=== PATIENT | female | born 1995 | race Caucasian/White ===

== ENCOUNTER 2019-04-10 15:58 | Emergency (ER) | payer BC ==
--- NOTE | 2019-04-10 17:19 | EDM.PDOC ---
ED HPI GENERAL MEDICAL PROBLEM - General Chief Complaint: Genitourinary Problem Stated Complaint: NAUSEA/POSS UTI Time Seen by Provider: 04/10/19 16:39 Source of Information: Reports: Patient History Limitations: Reports: No Limitations - History of Present Illness INITIAL COMMENTS - FREE TEXT/NARRATIVE: 24-year-old female presents for evaluation and treatment of urinary tract infection-like symptoms. Patient reports symptoms for the last few days. Current symptoms include dysuria, back pain, nausea and fatigue. Denies any hematuria, fevers, chills or vomiting. No vaginal discharge. Patient reports she is several days later for her menstrual cycle. Last menstrual cycle was over a month ago. She did take an at home urine test and this was negative. Patient has a history of PCOS. 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 Denies: Fever, Chills GI/Abdominal: Reports: Nausea. Denies: Abdominal Pain, Vomiting : Reports: Dysuria. Denies: Discharge, Flank Pain, Hematuria Musculoskeletal: Reports: Back Pain ED EXAM, RENAL/ - Physical Exam Exam: See Below Exam Limited By: No Limitations General Appearance: Alert, WD/WN, No Apparent Distress, Obese Respiratory/Chest: No Respiratory Distress, Lungs Clear, Normal Breath Sounds Cardiovascular: Normal Peripheral Pulses, Regular Rate, Rhythm, No Murmur GI/Abdominal: Normal Bowel Sounds, Soft, Non-Tender Back Exam: No: CVA Tenderness (L), CVA Tenderness (R) Neurological: Alert, Oriented, Normal Cognition Psychiatric: Normal Affect, Normal Mood Skin Exam: Warm, Dry, Normal Color Course - Vital Signs Last Recorded V/S: Last Vital Signs Temp 98.6 F 04/10/19 16:07 Pulse 60 04/10/19 16:07 Resp 15 04/10/19 16:07 BP 114/81 04/10/19 16:07 Pulse Ox 98 04/10/19 16:07 - Orders/Labs/Meds Labs: Laboratory Tests 04/10/19 04/10/19 04/10/19 Range/Units 16:55 17:05 17:05 Urine Color Yellow (Yellow) Urine Appearance Slt cloudy H (Clear) Urine pH 8.5 H (5.0-8.0) Ur Specific [place] 1.020 (1.005-1.030) Urine Protein 1+ H (Negative) Urine Glucose (UA) Negative (Negative) Urine Ketones Negative (Negative) Urine Occult Blood Trace-intact H (Negative) Urine Nitrite Negative (Negative) Urine Bilirubin Negative (Negative) Urine Urobilinogen 0.2 (0.2-1.0) Ur Leukocyte Esterase 1+ H (Negative) Urine RBC 5-10 H (0-5) /hpf Urine WBC 40-50 H (0-5) /hpf Ur Squamous Epith Cells 0-5 (0-5) /hpf Urine Bacteria Few (FEW) /hpf Urine Mucus Not seen (FEW) /hpf Urine HCG, Qual Negative (NEGATIVE) C trachomatis DNA (PCR) Detected H N gonorrhoeae DNA (PCR) Not detected - Re-Assessments/Exams Free Text/Narrative Re-Assessment/Exam: 04/10/19 17:52 Reviewed the lab results with the patient. Will start macrobid for UTI. Awaiting STD testing. We will call her if this is positive. Discharge instructions as documented. 04/11/19 14:49 Patient's Chlamydia returned +. Azithromycin 1 gram called into [facility] for patient and her partner. Encouraged to get full ST[facility] or with PCP. Departure - Departure Time of Disposition: 17:53 Disposition: Home, Self-Care 01 Condition: Fair Clinical Impression: UTI, Urinary tract infectious disease - Discharge Information *PRESCRIPTION DRUG MONITORING PROGRAM REVIEWED*: No *COPY OF PRESCRIPTION DRUG MONITORING REPORT IN PATIENT JOHNATHAN: No Prescriptions: Nitrofurantoin Monohyd/M-Cryst [Macrobid 100 mg Capsule] 100 mg PO BID #10 capsule Ondansetron [Zofran ODT] 4 mg PO Q6H PRN #10 tab.dis PRN Reason: Nausea Instructions: Urinary Tract Infection, Adult Referrals: Aditya Perez PA-C [Primary Care Provider] - Forms: ED Department Discharge Additional Instructions: Drink plenty of fluids. Macrobid 1 Twice a day for 5 days. Zofran 1 tab sublingual every 6 to 8 hours as needed for nausea. We will notify you if you're STD testing or urine culture results are concerning. If you do not hear from us no news is good news and assume these tests are negative. Follow-up with your primary care provider as needed. Please return to ER if your symptoms change or worsen.
[2019-04-10 19:06] LABS: C. TRACHOMATIS BY PCR DETECTED; N. GONORRHOEAE BY PCR NOT DETECTED
== END 2019-04-10 18:09 | disposition home or self-care (01) ==
LOC: JD.ED 15:58
DX: N39.0 Urinary tract infection, site not specified (principal); F17.210 Nicotine dependence, cigarettes, uncomplicated; Z79.899 Other long term (current) drug therapy
CPT/HCPCS: 81001; 81025; 87086; 87088; 87186; 87491; 87591; 99283

== ENCOUNTER 2019-04-20 01:21 | Emergency (ER) | payer BC ==
--- NOTE | 2019-04-20 02:23 | EDM.PDOC ---
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 She was seen here about 10 days ago and found to have a UTI and she was put on macrobid and also she was chlamydia positive. She took the zithromax for the chlamydia infection. She did not take the macrobid for the UTI. She felt like the UTI is gone. She drank lots of water and drank cranberry juice. Now she has vulval swelling and pain. She has no fever, chills, cough, congestion, runny nose, chest pain, shortness of breath, abdominal pain, nausea or vomiting. She has no discharge. Onset: Gradual Duration: Day(s): Location: Reports: Other (Genital area) Quality: Reports: Burning Severity: Moderate Improves with: Reports: None Worsens with: Reports: None Associated Symptoms: Reports: No Other Symptoms Vaginal Pain Score (Numeric/FACES): 4 - Related Data Allergies Allergy/AdvReac Type Severity Reaction Status Date / Time No Known Allergies Allergy Verified 04/20/19 01:35 Home Meds: Home Meds ALPRAZolam [Xanax] 0.5 mg PO DAILY PRN 04/10/19 [History] Ondansetron [Zofran ODT] 4 mg PO Q6H PRN #10 tab.dis 04/10/19 [Rx] Fluconazole [Diflucan] 150 mg PO ONETIME #1 tab 04/20/19 [Rx] Nitrofurantoin Monohyd/M-Cryst [Macrobid 100 mg Capsule] 100 mg PO BID #10 capsule 04/20/19 [Rx] Past Medical History Genitourinary History: Reports: UTI, Recurrent 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 Psychiatric History: Reports: Anxiety Social & Family History - Tobacco Use Smoking Status *Q: Light Tobacco Smoker Years of Tobacco use: 4 Packs/Tins Daily: 0.1 - Caffeine Use Caffeine Use: Reports: None - Recreational Drug Use Recreational Drug Use: No ED ROS GENERAL - Review of Systems Review Of Systems: See Below Constitutional: Reports: No Symptoms HEENT: Reports: No Symptoms Respiratory: Reports: No Symptoms Cardiovascular: Reports: No Symptoms Endocrine: Reports: No Symptoms GI/Abdominal: Reports: No Symptoms : Reports: Other (Vulval swelling and pain) Musculoskeletal: Reports: No Symptoms ED EXAM, RENAL/ - Physical Exam Exam: See Below Exam Limited By: No Limitations General Appearance: Alert, No Apparent Distress Ears: Normal External Exam Nose: Normal Inspection Head: Atraumatic, Normocephalic Neck: Normal Inspection Respiratory/Chest: No Respiratory Distress, Lungs Clear, Normal Breath Sounds Cardiovascular: Regular Rate, Rhythm, No Edema, No Murmur GI/Abdominal: Soft, Non-Tender, No Organomegaly, No Mass (Female) Exam: Other (Mild edema of the labia with mild edema and a slight white discharge) Course - Vital Signs Last Recorded V/S: Last Vital Signs Temp 97.3 F 04/20/19 01:32 Pulse 75 04/20/19 01:32 Resp 18 04/20/19 01:32 BP 122/60 04/20/19 01:32 Pulse Ox 100 04/20/19 01:32 - Orders/Labs/Meds Orders: Active Orders 24 hr Category Date Time Status Fluconazole [Diflucan] Med 04/20/19 02:33 Once 150 mg PO ONETIME ONE Nitrofurantoin [place]/Macrocryst [Macrobid] Med 04/20/19 02:33 Once 100 mg PO ONETIME ONE Labs: Laboratory Tests 04/20/19 04/20/19 Range/Units 01:55 01:55 Urine Color Yellow (Yellow) Urine Appearance Clear (Clear) Urine pH 6.0 (5.0-8.0) Ur Specific [place] 1.025 (1.005-1.030) Urine Protein Negative (Negative) Urine Glucose (UA) Negative (Negative) Urine Ketones Negative (Negative) Urine Occult Blood Trace-lysed H (Negative) Urine Nitrite Negative (Negative) Urine Bilirubin Negative (Negative) Urine Urobilinogen 0.2 (0.2-1.0) Ur Leukocyte Esterase 3+ H (Negative) Urine RBC 0-5 (0-5) /hpf Urine WBC 10-20 H (0-5) /hpf Ur Epithelial Cells 0-5 (0-5) /hpf Urine Bacteria Few (FEW) /hpf Urine Mucus Few (FEW) /hpf Urine HCG, Qual Negative (NEGATIVE) - Re-Assessments/Exams Free Text/Narrative Re-Assessment/Exam: 04/20/19 02:24 I feel she has a yeast infection. I will get a UA and a urine . She says she is late to having her period. 04/20/19 02:34 She still has a UTI and a yeast infection. I will give her a dose of diflucan and some macrobid. Departure - Departure Time of Disposition: 02:35 Disposition: Home, Self-Care 01 Condition: Good Clinical Impression: UTI, Urinary tract infectious disease, Yeast infection - Discharge Information *PRESCRIPTION DRUG MONITORING PROGRAM REVIEWED*: Not Applicable *COPY OF PRESCRIPTION DRUG MONITORING REPORT IN PATIENT JOHNATHAN: Not Applicable Prescriptions: Fluconazole [Diflucan] 150 mg PO ONETIME #1 tab Nitrofurantoin Monohyd/M-Cryst [Macrobid 100 mg Capsule] 100 mg PO BID #10 capsule Referrals: Venice Tanner MD [Primary Care Provider] - Forms: ED Department Discharge Additional Instructions: Take the macrobid 2 times per day for 5 days. Take the diflucan in 2 days. Drink plenty of fluids. Take motrin or aleve for pain. Please return if you are worse. - My Orders Last 24 Hours: My Active Orders 04/20/19 02:33 Fluconazole [Diflucan] 150 mg PO ONETIME ONE Nitrofurantoin [place]/Macrocryst [Macrobid] 100 mg PO ONETIME ONE - Assessment/Plan Last 24 Hours: My Active Orders 04/20/19 02:33 Fluconazole [Diflucan] 150 mg PO ONETIME ONE Nitrofurantoin [place]/Macrocryst [Macrobid] 100 mg PO ONETIME ONE
[2019-04-20] MEDS ORDERED: Nitrofurantoin Monohydrate/Macrocrystalline 100 MG Cap PO ONE (02:33)
[2019-04-20] MEDS ORDERED: Fluconazole 150 MG Tab PO ONE (02:33)
== END 2019-04-20 02:50 | disposition home or self-care (01) ==
LOC: JD.ED 01:21
DX: N39.0 Urinary tract infection, site not specified (principal); B37.3 Candidiasis of vulva and vagina; F41.9 Anxiety disorder, unspecified; F17.210 Nicotine dependence, cigarettes, uncomplicated; Z79.899 Other long term (current) drug therapy
CPT/HCPCS: 81001; 81025; 99283; A9270

== ENCOUNTER 2019-11-18 07:50 | Emergency (ER) | payer BC ==
[2019-11-18] MEDS ORDERED: Ketorolac 60 MG/2 ML SDV IM ONE (08:13)
[2019-11-18] MEDS ORDERED: Doxycycline 100 MG Cap PO ONE (08:13)
--- NOTE | 2019-11-18 08:18 | EDM.PDOC ---
ED HPI GENERAL MEDICAL PROBLEM - General Chief Complaint: Upper Extremity Injury/Pain Stated Complaint: LEFT MIDDLE FINGER INFECTION Time Seen by Provider: 11/18/19 07:55 Source of Information: Reports: Patient - History of Present Illness INITIAL COMMENTS - FREE TEXT/NARRATIVE: Patient is a 24-year-old female who presents with complaints of redness and swelling to her left middle finger. She states she got a manicure done about 2 weeks ago and approximately one week ago she ripped the nail off. Since that time the cuticle has been getting progressively more inflamed and swollen. She states she has been having some chills over the last couple days and feels a little nauseous. Denies any known fever. 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 ED EXAM, GENERAL - Physical Exam Exam: See Below Exam Limited By: No Limitations General Appearance: Alert, WD/WN, No Apparent Distress Respiratory/Chest: No Respiratory Distress, Lungs Clear, Normal Breath Sounds, No Accessory Muscle Use Cardiovascular: Normal Peripheral Pulses, Regular Rate, Rhythm, No Edema Neurological: Alert, Oriented, CN II-XII Intact, Normal Cognition Psychiatric: Normal Affect, Normal Mood Skin Exam: Warm, Dry, Intact, Normal Color, No Rash, Other (erythema and swelling to the cuticle of the left middle finger. There is a small area of purulence noted beneath the skin. ) Course - Vital Signs Last Recorded V/S: Last Vital Signs Temp 98.8 F 11/18/19 07:58 Pulse 89 11/18/19 07:58 Resp 16 01/16/20 07:58 BP 138/89 11/18/19 07:58 Pulse Ox 99 11/18/19 07:58 - Orders/Labs/Meds Meds: Medications Discontinued Medications Generic Name Dose Route Start Last Admin Trade Name Prasanna PRN Reason Stop Dose Admin Doxycycline Hyclate 100 mg 11/18/19 08:13 Vibramycin PO 11/18/19 08:14 ONETIME ONE Ketorolac Tromethamine 60 mg 11/18/19 08:13 Toradol IM 11/18/19 08:14 ONETIME ONE - Radiology Interpretation Free Text/Narrative:: On exam, patient does have an infection of the cuticle of the left middle finger. Likely sources from the manicure she had completed a couple weeks ago. Patient thinks she may have had MRSA in the past. We will treat with doxycycline 100 mg twice daily for 10 days. I have ordered an injection of Toradol 60 mg IM to be given. The area of induration was marked with a skin marker. Patient was advised to monitor the area for increasing erythema and to be reevaluated if the area does not improve over the next couple days. discharge instructions as noted. Departure - Departure Time of Disposition: 08:19 Disposition: Home, Self-Care 01 Condition: Fair Clinical Impression: Finger infection - Discharge Information *PRESCRIPTION DRUG MONITORING PROGRAM REVIEWED*: No *COPY OF PRESCRIPTION DRUG MONITORING REPORT IN PATIENT JOHNATHAN: No Prescriptions: Doxycycline [Vibramycin] 100 mg PO BID 10 Days #19 tab Instructions: Fingertip Infection Referrals: Aditya Perez PA-C [Primary Care Provider] - Forms: ED Department Discharge Additional Instructions: You were seen in the emergency department today for an infection to your left middle finger. You have been started on doxycycline 100 mg twice a day for 10 days. You did receive the first dose in the emergency department. The remaining doses have been sent electronically the [facility] pharmacy. While in the ER, you did receive an injection of Toradol for pain. I recommended that you continue to take [id number] ibuprofen 600 mg every 6 hours as needed for pain; however, do not taken next dose of ibuprofen until about 2:00 this afternoon. You should begin to see gradual improvement in the infection and pain over the next 24-48 hours. Over the next 24 hours, you may see the infection spread slightly outside of the chang on your finger, however after that time it should begin to gradually improve. If you should experience any worsening symptoms, or fail to improve as expected, you should be reevaluated either in the emergency department or by our primary care provider. Sepsis Event Note - Evaluation Sepsis Screening Result: No Definite Risk - Focused Exam Vital Signs: Vital Signs Temp Pulse Resp BP Pulse Ox 11/18/19 07:58 98.8 F 89 16 138/89 99 Date Exam was Performed: 11/18/19 Time Exam was Performed: 08:19
== END 2019-11-18 08:39 | disposition home or self-care (01) ==
LOC: JD.ED 07:50
DX: L08.9 Local infection of the skin and subcutaneous tissue, unspecified (principal); F41.9 Anxiety disorder, unspecified; Z88.5 Allergy status to narcotic agent; Z79.899 Other long term (current) drug therapy
CPT/HCPCS: 96372; 99283; A9270; J1885; 99282

== ENCOUNTER 2020-01-01 22:42 | Emergency (ER) | payer BC ==
--- NOTE | 2020-01-01 23:26 | EDM.PDOC ---
ED HPI GENERAL MEDICAL PROBLEM - General Chief Complaint: General Stated Complaint: EXPOSED TO AN STD Time Seen by Provider: 01/01/20 23:03 Source of Information: Reports: Patient History Limitations: Reports: No Limitations - History of Present Illness INITIAL COMMENTS - FREE TEXT/NARRATIVE: Ms. Hurley is a 24-year-old woman with a past medical history significant for anxiety and untreated polycystic ovarian syndrome, who states that a sexual partner told her 3 days ago that he has since been advised by another sexual partner that she has chlamydia, and that he therefore might have it as well. The patient states that she last had intercourse with him about 2 weeks ago. She states that for the past 2 weeks she has had pelvic and vaginal discomfort. She states that she has not had a vaginal discharge, but that she knows her body and can tell that her vaginal pH is off and that something is not right. The patient began her menstrual period on 12/25/2019, and is just finishing it now. . The patient denies recent fever, chills, cough, dyspnea, chest pain, palpitations, nausea, vomiting, constipation, diarrhea, abdominal pain, recent weight gain or weight loss, recent bloody bowel movements or black bowel movements, recent joint aches, headaches, or rashes. She states that she has occasional dysuria when she begins to urinate, but that it is not consistent with prior UTIs that she has had, and she denies urinary urgency or frequency. The patient's PCP is TIANNA Curran. Her Occupational Therapy Manager is Dr. Venice Tanner. She did not receive an influenza vaccine this season, and declined an offer to receive one here today. 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) Psychiatric History: Reports: Anxiety Endocrine/Metabolic History: Reports: Obesity/BMI 30+ - Past Surgical History HEENT Surgical History: Reports: Oral Surgery (wisdom teeth extraction) Social & Family History - Tobacco Use Smoking Status *Q: Current Every Day Smoker Years of Tobacco use: 4 Packs/Tins Daily: 0.3 Packs/Tins Daily Comment: Down from 11/04 ppd - Caffeine Use Caffeine Use: Reports: Coffee, Soda, Tea - Alcohol Use Alcohol Use History: Yes Alcohol Use Frequency: Socially (occasionally to excess) - Recreational Drug Use Recreational Drug Use: Yes Drug Use in Last 12 Months: Yes Recreational Drug Type: Reports: Marijuana/Hashish (smokes fairly regularly) - Living Situation & Occupation Living situation: Reports: Single, Alone Occupation: Unemployed ED ROS GENERAL - Review of Systems Review Of Systems: Comprehensive ROS is negative, except as noted in HPI. ED EXAM, GENERAL - Physical Exam Exam: See Below Exam Limited By: No Limitations General Appearance: Alert, WD/WN, No Apparent Distress Eye Exam: Bilateral Eye: EOMI, Normal Inspection Ears: Normal External Exam, Hearing Grossly Normal Nose: Normal Inspection Throat/Mouth: Normal Inspection, Normal Lips, Normal Voice, No Airway Compromise Head: Atraumatic, Normocephalic Neck: Normal Inspection, Full Range of Motion Respiratory/Chest: No Respiratory Distress, Lungs Clear, Normal Breath Sounds, No Accessory Muscle Use Cardiovascular: Normal Peripheral Pulses, Regular Rate, Rhythm, No Edema, No Gallop, No JVD, No Murmur, No Rub Peripheral Pulses: 4+: Radial (L), Radial (R) GI/Abdominal: Normal Bowel Sounds, Soft, Non-Tender, No Organomegaly, No Distention, No Abnormal Bruit, No Mass (Female) Exam: Deferred Rectal (Female) Exam: Deferred Back Exam: Normal Inspection, Full Range of Motion. No: CVA Tenderness (L), CVA Tenderness (R) Extremities: Normal Inspection, Normal Range of Motion, No Pedal Edema, Normal Capillary Refill Neurological: Alert, Oriented, Normal Cognition, No Motor/Sensory Deficits Psychiatric: Normal Affect Skin Exam: Warm, Dry, Intact, Normal Color, No Rash Course - Vital Signs Last Recorded V/S: Last Vital Signs Temp 37.6 C 01/01/20 22:58 Pulse 100 01/01/20 22:58 Resp 20 01/01/20 22:58 BP 139/72 01/01/20 22:58 Pulse Ox 100 01/01/20 22:58 - Orders/Labs/Meds Labs: Laboratory Tests 01/01/20 Range/Units 23:51 C trachomatis DNA (PCR) Not detected N gonorrhoeae DNA (PCR) Not detected - Re-Assessments/Exams Free Text/Narrative Re-Assessment/Exam: 01/01/20 23:25 Testing for both chlamydia and gonorrhea are appropriate, as chlamydia will test positive within 1 to 5 days after exposure, and gonorrhea within 2 to 6 days. I have ordered a GC/chlamydia by PCR per a urine sample. The patient is confident that she does not have a UTI, and declined an offer to check her urine for a UTI. 01/02/20 01:35 Both gonorrhea and chlamydia by PCR have returned negative. 01/02/20 01:37 Test results discussed with the patient and her sister. The patient stated that her time in the ED was a waste. I recommended that if her symptoms persist , that she follow-up with her Occupational Therapy Manager, Dr. Tanner, for further evaluation. Departure - Departure Time of Disposition: 01:38 Disposition: Home, Self-Care 01 Condition: Good Clinical Impression: Exposure to STD - Discharge Information *PRESCRIPTION DRUG MONITORING PROGRAM REVIEWED*: Not Applicable *COPY OF PRESCRIPTION DRUG MONITORING REPORT IN PATIENT JOHNATHAN: Not Applicable Referrals: Venice Tanner MD [Primary Care Provider] - Aditya Perez PA-C [Physician Conditioner Tumbler] - Forms: ED Department Discharge Additional Instructions: You were seen in the emergency room for pelvic and vaginal discomfort after being told that you might have been exposed to chlamydia. Work-up in the ER included a gonorrhea and chlamydia test by PCR. Both tests returned negative. If your symptoms persist, we recommend that you follow-up with your Occupational Therapy Manager , Dr. Venice Tanner, for further evaluation. If any other problems, please do not hesitate to return to the ER. Sepsis Event Note - Evaluation Sepsis Screening Result: No Definite Risk - Focused Exam Vital Signs: Vital Signs Temp Pulse Resp BP Pulse Ox 01/01/20 22:58 37.6 C 100 20 139/72 100 Date Exam was Performed: 01/02/20 Time Exam was Performed: 01:40
[2020-01-02 01:28] LABS: C. TRACHOMATIS BY PCR NOT DETECTED; N. GONORRHOEAE BY PCR NOT DETECTED
== END 2020-01-02 01:45 | disposition home or self-care (01) ==
LOC: JD.ED 22:42
DX: Z20.2 Contact with and (suspected) exposure to infections with a predominantly sexual mode of transmission (principal); F17.210 Nicotine dependence, cigarettes, uncomplicated; Z88.8 Allergy status to other drugs, medicaments and biological substances; Z79.899 Other long term (current) drug therapy
CPT/HCPCS: 87491; 87591; 99282; 99283

== ENCOUNTER 2021-11-12 12:59 | Emergency (ER) | payer BC ==
--- NOTE | 2021-11-12 14:56 | EDM.PDOC ---
ED HPI GENERAL MEDICAL PROBLEM - General Chief Complaint: General Stated Complaint: FATIGUE,VOMITING, HEADACHE Time Seen by Provider: 11/12/21 13:21 Source of Information: Reports: Patient History Limitations: Reports: No Limitations - History of Present Illness INITIAL COMMENTS - FREE TEXT/NARRATIVE: 26-year-old female presents the emergency department today for complaints of f atigue and a headache for "months" since having Covid. Patient also states she believes she has pinworms. She is in a living situation where her roommates son tested positive for pinworms and has been treated however the patient states that she is having significant rectal itching at nighttime and noted pinworms in her underwear. Patient is also requesting be tested for HIV and STIs as she states she slept with someone recently and she found out that the person has HIV. She states she did use a condom however would like to be tested for mental reassurance. - Related Data Allergies Allergy/AdvReac Type Severity Reaction Status Date / Time tramadol Allergy Hives Verified 11/12/21 13:27 Home Meds: Home Meds ALPRAZolam [Xanax] 0.5 mg PO DAILY PRN 04/10/19 [History] Doxycycline [Vibramycin] 100 mg PO BID 10 Days #19 tab 11/18/19 [Rx] Albendazole 400 mg PO ASDIRECTED #4 tablet 11/12/21 [Rx] Past Medical History - Past Health History Medical/Surgical History: Denies Medical/Surgical History Genitourinary History: Reports: UTI, Recurrent [employer] History: Reports: Polycystic Ovaries Psychiatric History: Reports: Anxiety Endocrine/Metabolic History: Reports: Obesity/BMI 30+ - Infectious Disease History Infectious Disease History: Reports: Novel Coronavirus - Past Surgical History HEENT Surgical History: Reports: Oral Surgery Social & Family History - Tobacco Use Tobacco Use Status *Q: Never Tobacco User - Caffeine Use Caffeine Use: Reports: Coffee, Soda, Tea - Living Situation & Occupation Living situation: Reports: Single, Alone Occupation: Unemployed ED ROS GENERAL - Review of Systems Review Of Systems: Comprehensive ROS is negative, except as noted in HPI. ED EXAM, GENERAL - Physical Exam Exam: See Below Exam Limited By: No Limitations General Appearance: Alert, WD/WN, No Apparent Distress Ears: Normal External Exam, Hearing Grossly Normal Nose: Normal Inspection Throat/Mouth: Normal Inspection, Normal Lips, Normal Voice, No Airway Compromise Head: Atraumatic, Normocephalic Neck: Normal Inspection, Supple Respiratory/Chest: No Respiratory Distress, No Accessory Muscle Use Cardiovascular: Normal Peripheral Pulses, Regular Rate, Rhythm GI/Abdominal: No Distention (Female) Exam: Deferred Rectal (Female) Exam: Deferred Back Exam: Normal Inspection Extremities: Normal Inspection Neurological: Alert, Oriented, Normal Cognition Psychiatric: Normal Affect, Normal Mood Skin Exam: Warm, Dry, Intact, Normal Color, No Rash Lymphatic: No Adenopathy Course - Vital Signs Text/Narrative:: As stated above, patient requests medication for treatment of pinworms. I did not examine the patient as she verbalizes all the symptoms. We will send a prescription for albendazole to her pharmacy. We will also obtain urinalysis for chlamydia and gonorrhea and lab testing for rapid HIV test. Patient was examined and remainder of exam was unremarkable. Last Recorded V/S: Last Vital Signs Temp 97.8 F 11/12/21 13:23 Pulse 110 H 11/12/21 13:23 Resp 18 11/12/21 13:23 BP Pulse Ox 100 11/12/21 13:23 - Orders/Labs/Meds Orders: Active Orders 24 hr Category Date Time Status GC/CHLAMYDIA BY PCR [MOLEC] Stat Lab 11/12/21 14:50 Received HIV RAPID SCREEN RLFX COMFIRM [CHEM] Stat Lab 11/12/21 14:35 Received Departure - Departure Time of Disposition: 14:53 Disposition: Home, Self-Care 01 Condition: Good Clinical Impression: Pinworms - Discharge Information Prescriptions: Albendazole 400 mg PO ASDIRECTED #4 tablet Referrals: PCP,None [Primary Care Provider] - Forms: ED Department Discharge Additional Instructions: You were seen in the emergency department today with complaints of pinworms as well as wanting to be tested for HIV and STDs. I have sent prescription to your pharmacy for a medication called albendazole. You will need to take 400 mg or 2 tabs first thing tomorrow morning on an empty stomach. Then you need to do this again in 2 weeks time first thing in the morning on an empty stomach. We will call you with the results of your HIV as well as STI testing. Be sure to wash your hands frequently. Wash your hands before and after handling all food and any surfaces to prevent contamination of other members in your household. Sepsis Event Note (ED) - Evaluation Sepsis Screening Result: No Definite Risk - Focused Exam Vital Signs: Vital Signs Temp Pulse Resp Pulse Ox 11/12/21 13:23 97.8 F 110 H 18 100 - My Orders Last 24 Hours: My Active Orders 11/12/21 14:35 HIV RAPID SCREEN RLFX COMFIRM [CHEM] Stat 11/12/21 14:50 GC/CHLAMYDIA BY PCR [MOLEC] Stat - Assessment/Plan Last 24 Hours: My Active Orders 11/12/21 14:35 HIV RAPID SCREEN RLFX COMFIRM [CHEM] Stat 11/12/21 14:50 GC/CHLAMYDIA BY PCR [MOLEC] Stat
[2021-11-12 16:52] LABS: C. TRACHOMATIS BY PCR NOT DETECTED; N. GONORRHOEAE BY PCR NOT DETECTED
== END 2021-11-12 14:07 | disposition home or self-care (01) ==
LOC: JD.ED 12:59
DX: B80 Enterobiasis (principal); E66.9 Obesity, unspecified; Z88.5 Allergy status to narcotic agent; Z68.39 Body mass index [BMI] 39.0-39.9, adult
CPT/HCPCS: 36415; 87491; 87591; 99284; G0433

== ENCOUNTER 2022-02-27 16:09 | Observation (INO) | payer MEDICAID ==
[2022-02-27] MEDS ORDERED: Ondansetron 4 MG/2 ML SDV IVPUSH ONE (16:52)
[2022-02-27] MEDS ORDERED: HYDROmorphone 1 MG/ML Syringe IVPUSH STA (16:52)
[2022-02-27] MEDS ORDERED: Sodium Chloride 0.9% 10 ML Syringe FLUSH PRN (16:52)
[2022-02-27] MEDS ORDERED: Sodium Chloride 0.9% 10 ML Syringe FLUSH ONE (16:54)
[2022-02-27] MEDS ORDERED: Iopamidol 612 MG/ML 100 ML Bottle IVPUSH ONE (16:54)
[2022-02-27] MEDS ORDERED: Sodium Chloride 0.9% 1,000 ML IV SCH (17:00)
[2022-02-27] MEDS ORDERED: Sodium Chloride 0.9% 100 ML IV SCH (17:00)
[2022-02-27] MEDS ORDERED: cefTRIAXone 2 GM in Sodium Chloride 0.9% 100 ML IV ONE (18:10)
[2022-02-27] MEDS ORDERED: Ketorolac 30 MG/ML SDV IVPUSH ONE (18:34)
[2022-02-27] MEDS ORDERED: Azithromycin 250 MG Tab PO ONE (19:40)
[2022-02-27 20:05] LABS: C. TRACHOMATIS BY PCR NOT DETECTED; N. GONORRHOEAE BY PCR NOT DETECTED
[2022-02-27] MEDS ORDERED: Morphine 2 MG/ML SYRINGE IVPUSH PRN (21:22)
[2022-02-27] MEDS: Sodium Chloride 0.9% 1,000 ML IV SCH (21:35)
[2022-02-27] MEDS: Morphine 2 MG/ML SYRINGE IVPUSH SCH (23:06)
[2022-02-27] MEDS: Ondansetron 4 MG/2 ML SDV IVPUSH PRN (23:16)
[2022-02-27] MEDS: LORazepam 2 MG/ML SDV IVPUSH PRN (23:29)
[2022-02-28] MEDS: Morphine 2 MG/ML SYRINGE IVPUSH SCH ×2 (03:29→05:32)
[2022-02-28] MEDS: Acetaminophen 325 MG Tab PO PRN ×2 (04:31→19:36)
[2022-02-28] MEDS: Ondansetron 4 MG/2 ML SDV IVPUSH PRN (05:24)
[2022-02-28] MEDS ORDERED: cefTRIAXone 2 GM in Sodium Chloride 0.9% 100 ML IV SCH ×2 (07:00→18:00)
[2022-02-28] MEDS: Sodium Chloride 0.9% 1,000 ML IV SCH ×2 (08:32→19:30)
[2022-02-28] MEDS: Acetaminophen/HYDROcodone 325-5 MG Tab PO PRN ×2 (08:35→22:55)
[2022-02-28] MEDS: Enoxaparin 40 MG/0.4 ML Syringe SUBCUT SCH (08:46)
[2022-02-28] MEDS: Ketorolac 30 MG/ML SDV IVPUSH PRN ×2 (09:56→16:18)
[2022-02-28] MEDS: Phenazopyridine 95 MG Tab PO SCH ×3 (09:57→17:59)
[2022-02-28] MEDS ORDERED: Potassium Chloride 20 MEQ Tab.ER PO ONE (12:30)
[2022-02-28] MEDS: LORazepam 2 MG/ML SDV IVPUSH PRN ×2 (19:37→23:48)
[2022-02-28] MEDS ORDERED: traZODone 50 MG Tab PO ONE (23:15)
[2022-03-01] MEDS: LORazepam 2 MG/ML SDV IVPUSH PRN ×2 (04:21→08:36)
[2022-03-01] MEDS: Acetaminophen 325 MG Tab PO PRN (06:00)
[2022-03-01] MEDS: Sodium Chloride 0.9% 1,000 ML IV SCH (07:43)
[2022-03-01] MEDS: Enoxaparin 40 MG/0.4 ML Syringe SUBCUT SCH (08:37)
[2022-03-01] MEDS: Phenazopyridine 95 MG Tab PO SCH (08:37)
[2022-03-01] MEDS: Ketorolac 30 MG/ML SDV IVPUSH PRN (08:49)
[2022-03-01] MEDS ORDERED: traZODone 50 MG Tab PO ONE (23:09)
== END 2022-03-01 11:21 | disposition home or self-care (01) ==
LOC: JD.ED 16:09 → JD.MS 20:52
PROVIDERS: ADMIT Internal Medicine; ATTEND Internal Medicine
DX: N12 Tubulo-interstitial nephritis, not specified as acute or chronic (principal); N30.00 Acute cystitis without hematuria; F41.9 Anxiety disorder, unspecified; E66.9 Obesity, unspecified; Z68.41 Body mass index [BMI] 40.0-44.9, adult; Z91.041 Radiographic dye allergy status; Z88.5 Allergy status to narcotic agent; Z79.899 Other long term (current) drug therapy; Z87.891 Personal history of nicotine dependence
CPT/HCPCS: 36415; 74177; 80053; 81001; 83690; 83735; 85025; 86140; 87086; 87491; 87591; 96365; 96375; 99285; A9270; J0696; J1170; J1650; J1885; J2060; J2270; J2405; J3490; J7030; Q9967

== ENCOUNTER 2023-05-28 03:26 | Emergency (ER) | payer MEDICAID ==
[2023-05-28 04:50] LABS: APPEARANCE,URINE CLEAR (Clear); BILIRUBIN,URINE NEGATIVE (Negative); COLOR,URINE YELLOW (Yellow); GLUCOSE,URINE NEGATIVE (Negative); KETONES,URINE TRACE (Negative); LEUKOCYTE ESTERASE,URINE 1+ (Negative); NITRITE,URINE POSITIVE (Negative); OCCULT BLOOD,URINE 2+ (Negative); PROTEIN,URINE 2+ (Negative); UROBILINOGEN,URINE 0.2 (0.2-1.0)
[2023-05-28 05:01] LABS: BACTERIA,URINE MANY /hpf (FEW); HYALINE CASTS,URINE 0-5 /lpf (0-5); MUCUS,URINE FEW /hpf (FEW); RBC,URINE 0-5 /hpf (0-5); SQUAMOUS EPITHELIAL CELLS,UR 0-5 /hpf (0-5); WBC CLUMPS,URINE FEW /hpf (NOT SEEN)
[2023-05-28] MEDS ORDERED: Cephalexin 500 MG Cap PO ONE (05:14)
[2023-05-28] MEDS ORDERED: Acetaminophen 325 MG Tab PO ONE (05:34)
== END 2023-05-28 06:30 | disposition home or self-care (01) ==
LOC: JD.ED 03:26
DX: N39.0 Urinary tract infection, site not specified (principal); E66.9 Obesity, unspecified; Z68.42 Body mass index [BMI] 45.0-49.9, adult; Z86.16 Personal history of COVID-19; Z91.040 Latex allergy status; Z88.5 Allergy status to narcotic agent
CPT/HCPCS: 81001; 99283; A9270

== ENCOUNTER 2023-05-29 21:47 | Emergency (ER) | payer MEDICAID ==
[2023-05-29] MEDS ORDERED: Sodium Chloride 0.9% 10 ML Syringe FLUSH PRN (22:25)
[2023-05-29] MEDS ORDERED: Ondansetron 4 MG/2 ML SDV IVPUSH ONE (22:25)
[2023-05-29] MEDS ORDERED: Sodium Chloride 0.9% 1,000 ML IV SCH (22:30)
[2023-05-29 23:09] LABS: BASOPHILS ABSOLUTE AUTO 0.03 K/mm3 (0.01-0.08); BASOPHILS PERCENT AUTO 0.2 % (0.1-1.2); EOSINOPHILS ABSOLUTE AUTO 0.03 K/mm3 (0.04-0.36); EOSINOPHILS PERCENT AUTO 0.2 (0.7-5.8); HEMATOCRIT 37.2 % (34.1-44.9); HEMOGLOBIN 11.9 gm/dl (11.2-15.7); IMMATURE GRAN ABSOLUTE AUTO 0.03 K/mm3 (0.00-0.10); IMMATURE GRAN PERCENT AUTO 0.2 % (<=1.0); LYMPHOCYTES ABSOLUTE AUTO 0.83 K/mm3 (1.18-3.74); LYMPHOCYTES PERCENT AUTO 5.2 % (19.3-51.7); MEAN CORPUSCULAR VOLUME 84.4 fl (79.4-94.8); MEAN PLATELET VOLUME 10.7 fl (9.4-12.3); MONOCYTES ABSOLUTE AUTO 1.41 K/mm3 (0.24-0.36); MONOCYTES PERCENT AUTO 8.8 % (4.7-12.5); NEUTROPHILS ABSOLUTE AUTO 13.63 K/mm3 (1.56-6.13); NEUTROPHILS PERCENT AUTO 85.4 % (34.0-71.1); PLATELET COUNT,PLT 299 K/mm3 (182-369); RED BLOOD CELL COUNT 4.41 M/mm3 (3.98-5.22); WHITE BLOOD CELL COUNT,WBC 15.96 K/mm3 (3.98-10.04)
[2023-05-29 23:34] LABS: A/G RATIO 0.6 (1-2); ALANINE AMINOTRANSFERASE,ALT 16 U/L (14-59); ALKALINE PHOSPHATASE 112 U/L (46-116); ANION GAP 14.2 (5-15); ASPARTATE AMNIOTRANSFERASE,AST 14 U/L (15-37); BILIRUBIN TOTAL 0.7 mg/dL (0.2-1.0); BLOOD UREA NITROGEN,BUN 12 mg/dL (7-18); BUN/CREATININE RATIO 13.3 (14-18); CALCIUM 9.1 mg/dL (8.5-10.1); CARBON DIOXIDE,CO2 26 mEq/L (21-32); CHLORIDE,CL 101 mEq/L (98-107); CREATININE 0.9 mg/dL (0.55-1.02); EST CRCL DRUG DOSING (CG) 83.74 mL/min; ESTIMATED GFR 89 mL/min (>60); GLUCOSE RANDOM 115 mg/dL (70-99); POTASSIUM,K 3.2 mEq/L (3.5-5.1); SODIUM,NA 138 mEq/L (136-145)
[2023-05-29 23:43] LABS: HCG QUANTITATIVE < 1.0 mIU/mL
[2023-05-30] MEDS ORDERED: HYDROmorphone 1 MG/ML Syringe IVPUSH ONE (00:49)
[2023-05-30] MEDS ORDERED: Iopamidol 612 MG/ML 100 ML Bottle IVPUSH ONE (01:16)
[2023-05-30 02:20] LABS: APPEARANCE,URINE CLEAR (Clear); BILIRUBIN,URINE 1+ (Negative); COLOR,URINE YELLOW (Yellow); GLUCOSE,URINE NEGATIVE (Negative); KETONES,URINE 2+ (Negative); LEUKOCYTE ESTERASE,URINE NEGATIVE (Negative); NITRITE,URINE NEGATIVE (Negative); OCCULT BLOOD,URINE 2+ (Negative); PROTEIN,URINE 3+ (Negative); UROBILINOGEN,URINE >=8.0 (0.2-1.0)
[2023-05-30] MEDS ORDERED: Levofloxacin/Dextrose 5%-Water 750 MG in Premix Bag 1 BAG IV STA (02:20)
[2023-05-30] MEDS ORDERED: LORazepam 2 MG/ML SDV IVPUSH STA (02:24)
[2023-05-30] MEDS ORDERED: Potassium Chloride 20 MEQ Tab.ER PO ONE (02:24)
[2023-05-30 02:34] LABS: BACTERIA,URINE FEW /hpf (FEW); MUCUS,URINE RARE /hpf (FEW)
[2023-05-30] MEDS ORDERED: Acetaminophen 325 MG Tab PO ONE (03:57)
[2023-05-30] MEDS ORDERED: Phenazopyridine 95 MG Tab PO STA (04:58)
[2023-05-30] MEDS ORDERED: Melatonin 3 MG Tab PO STA (05:04)
== END 2023-05-30 06:02 | disposition home or self-care (01) ==
LOC: JD.ED 21:47
DX: G62.9 Polyneuropathy, unspecified (principal); E87.6 Hypokalemia; F17.210 Nicotine dependence, cigarettes, uncomplicated; E66.9 Obesity, unspecified; Z68.42 Body mass index [BMI] 45.0-49.9, adult; Z88.5 Allergy status to narcotic agent; Z91.040 Latex allergy status; Z79.899 Other long term (current) drug therapy; Z86.16 Personal history of COVID-19
CPT/HCPCS: 36415; 74177; 80053; 81001; 84702; 85025; 87086; 96361; 96365; 96366; 96375; 99284; A9270; J1170; J1956; J2060; J2405; J3490; J7030; Q9967

== ENCOUNTER 2023-10-10 12:00 | Emergency (ER) | payer MEDICAID ==
[2023-10-10] MEDS ORDERED: Cephalexin 500 MG Cap PO ONE (14:34)
[2023-10-10] MEDS ORDERED: Ibuprofen 400 MG Tab PO ONE (14:35)
== END 2023-10-10 15:11 ==
LOC: JD.ED 12:00
DX: L03.115 Cellulitis of right lower limb (principal); E66.9 Obesity, unspecified; Z86.16 Personal history of COVID-19; Z91.040 Latex allergy status; Z88.5 Allergy status to narcotic agent; Z68.41 Body mass index [BMI] 40.0-44.9, adult
CPT/HCPCS: 73610-26-RT; 73610-RT; 93971-26-RT; 93971-RT; 99284; A9270-GY